=== PATIENT | female | born 1965 | race Caucasian/White ===

== ENCOUNTER 2016-07-23 22:29 | Emergency (ER) | payer OTHER ==
[~2016-07-23] VITALS: Ht 157.5 cm; Wt 69.2 kg
[~2016-07-23 22:29] MED LIST: DICL75 PO; ESTR1TAB PO; ESTR1TAB12 PO; FOLI1 PO; HYDR-3533 PO; LISI-586 PO; MULT1TAB46; PRED20 PO; ROBA750T3 PO; VITATAB25 PO
[2016-07-23 22:31] VITALS: BP 162/94; PULSE 83; RESP 18; TEMP 98.6; O2SAT 98
[2016-07-23] MEDS ORDERED: TRAM50TA PO (22:45)
[2016-07-23] MEDS ORDERED: ESTR1TAB PO (22:45)
[2016-07-23] MEDS ORDERED: LISI20TA PO (22:45)
[2016-07-23] MEDS ORDERED: LISI20TA3 PO (22:45)
--- NOTE | 2016-07-23 22:54 | PD ---
HPI Chief Complaint: Cold / Flu Symptoms Time Seen by Provider: 22:41 Travel History International Travel<30 days: No Contact w/Intl Traveler<30days: No Traveled to known affect area: No History of Present Illness HPI 50-year-old female complains of sore throat coughing congestion shortness of breath and wheezing and body ache. Patient states that the symptoms started 5 days ago. Patient states the cough is mildly productive. Patient denies any chest pain. Patient denies any fever. Patient states that she has hot and cold feelings. Patient denies any nausea vomiting diarrhea. Patient has history COPD. Patient states that she quit smoking in the past. Patient states that she used inhaler prior coming to the emergency room. 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) Blood Disorders: Yes (INTESTINAL ANEURSYMS) Cancer: Yes (VAGINAL) Cardiovascular Problems: No High Cholesterol: Yes Chemotherapy: No COPD: Yes Cerebrovascular Accident: No Diabetes: No Diminished Hearing: No Endocrine: No Gastrointestinal Disorders: Yes (AVM) GERD: Yes Glaucoma: No Genitourinary: No Hepatitis: No Hiatal Hernia: No Hypertension: Yes Immune Disorder: No Musculoskeletal: Yes (SCOLIOSIS) Neurologic: No Psychiatric: No Reproductive: No Respiratory: No Immunizations Current: Yes Pneumonia: Yes (09/07/09) Radiation Therapy: No Thyroid Disease: No Tetanus Vaccination: Unknown Influenza Vaccination: Yes ?: Not Menopausal: Yes : 3 Para: 1 Miscarriage: 2 Past Surgical History Abdominal Surgery: No AICD: No Appendectomy: Yes Arteriovenous Shunt: No Body Medical Devices: POLYPS ON COLON Cardiac Surgery: No Ear Surgery: No Endocrine Surgery: No Eye Surgery: No Genitourinary Surgery: No Gynecologic Surgery: Yes (BREAST REDUCTION) Hysterectomy: Yes Insulin Pump: No Joint Replacement: No Neurologic Surgery: No Oral Surgery: No Pacemaker: No Thoracic Surgery: No Tonsillectomy: Yes Other Surgery: Yes (BREAST REDUCTION) Social History Alcohol Use: No Tobacco Use: No Substance Use: No Allergies-Medications (Allergen,Severity, Reaction): Coded Allergies: No Known Allergies (Unverified , 07/23/16) Reported Meds & Prescriptions Reported Meds & Active Scripts Active Reported Lisinopril-Hctz 20-12.5 Mg Tab 1 Tab PO DAILY Tramadol (Tramadol HCl) 50 Mg Tab 50 Mg PO Q6H PRN Estradiol 1 Mg Tab 1 Mg PO DAILY Review of Systems General / Constitutional: No: Fever Eyes: No: Visual changes HENT: No: Headaches Cardiovascular: No: Chest Pain or Discomfort Respiratory: Positive: Cough, Shortness of Breath, Wheezing Gastrointestinal: No: Abdominal Pain Genitourinary: No: Dysuria Musculoskeletal: No: Pain Skin: No Rash Neurologic: No: Weakness Psychiatric: No: Depression Endocrine: No: Polydipsia Hematologic/Lymphatic: No: Easy Bruising Physical Exam Narrative GENERAL: Well-nourished, well-developed patient. SKIN: Warm and dry. HEAD: Normocephalic. EYES: No scleral icterus. No injection or drainage. NECK: Supple, trachea midline. No JVD or lymphadenopathy. CARDIOVASCULAR: Regular rate and rhythm without murmurs, gallops, or rubs. RESPIRATORY: Breath sounds equal bilaterally. No accessory muscle use. Patient has moderate expiratory wheezes bilaterally. Few rhonchi at the bases. GASTROINTESTINAL: Abdomen soft, non-tender, nondistended. MUSCULOSKELETAL: No cyanosis, or edema. BACK: Nontender without obvious deformity. No CVA tenderness. Data Data Last Documented VS Vital Signs Date Time Temp Pulse Resp B/P Pulse Ox O2 Delivery O2 Flow Rate FiO2 07/23/16 22:46 98 Room Air 07/23/16 22:31 98.6 83 18 162/94 Orders Chest, Single Ap (07/23/16 22:47) Albuterol-Ipratropium Neb (Duoneb Neb) (07/23/16 23:00) Dexamethasone Inj (Decadron Inj) (07/23/16 23:00) Azithromycin (Zithromax) (07/23/16 23:30) MDM Medical Decision Making Medical Screen Exam Complete: Yes Emergency Medical Condition: Yes Differential Diagnosis Differential diagnosis including acute exacerbation COPD, bronchitis, pneumonia , PE, pneumothorax. Narrative Course 50-year-old female with sore throat, body ache, coughing, wheezing, shortness of breath. Patient has history of COPD. Albuterol with Atrovent unit dose treatment 3. Decadron 8 mg IM. Patient was advised to be admitted for acute exacerbation COPD. Patient refuses admission. Patient states that she has animal at home that she has to be cared for. Albuterol with Atrovent unit dose treatment times one. Diagnosis Primary Impression: COPD with acute exacerbation Patient Instructions: General Instructions Med/Other Pt SpecificInfo: Prescription(s) given Scripts Budesonide-Formoterol Inh (Symbicort Inh)160-4.5 Mcg/Act Aero1 Puff INH Q12HR # 1 INHALER Ref 0 Prov:Geo Gates MD 07/23/16 Prednisone 20 Mg Tab20 Mg PO BID #14 TAB Prov:Geo Gates MD 07/23/16 Azithromycin (Zithromax Z-Micky)250 Mg [id number] Mg PO DIRECTED #1 DSPK 500 MG (2 tabs) day 1, then 1 tab days 2-5. Prov:Geo Gates MD 07/23/16 Disposition: 01 DISCHARGE HOME Condition: Fair Geo Gates MD Jul 23, 2016 22:54
[2016-07-23] MEDS: RESP: ALBUTEROL 2.5 MG/IPRATROPIUM 0.5 MG NEB (SCH) INH (22:55)
[2016-07-23] MEDS ORDERED: DEXAMETHASONE SOD PHOS 4 MG/ML VIAL IM ONE (23:00)
[2016-07-23] MEDS ORDERED: RESP: ALBUTEROL 2.5 MG/IPRATROPIUM 0.5 MG NEB (SCH) INH ONE (23:30)
[2016-07-23] MEDS ORDERED: AZITHROMYCIN 250 MG TAB PO ONE (23:30)
[2016-07-23] MEDS ORDERED: PRED20 PO (23:31)
[2016-07-23] MEDS ORDERED: ZITHTAB PO (23:31)
[2016-07-23] MEDS ORDERED: SYMB160A INH (23:31)
--- NOTE | 2016-07-23 23:32 | RADHPO ---
EXAM DATE/TIME: 07/23/2016 23:08 [facility] COMPARISON: CHEST SINGLE AP, February 19, 2015, 8:41. INDICATIONS : Cough and shortness of breath. MEDICAL HISTORY : Hypertension. Chronic obstructive pulmonary disease. Arthritis. Pneumonia SURGICAL HISTORY : Appendectomy. Hysterectomy. Breast reduction, right knee surgery ENCOUNTER: Initial ACUITY: 4 - 6 days PAIN SCORE: 0/10 LOCATION: Bilateral chest FINDINGS: A single view of the chest demonstrates the lungs to be symmetrically aerated without evidence of mas s, infiltrate or effusion. The cardiomediastinal contours are unremarkable. Osseous structures are intact. CONCLUSION: No acute disease. Ac Mckeon MD on July 23, 2016 at 23:30 Board Certified Radiologist. This report was verified electronically.
[2016-07-23 23:38] VITALS: BP 131/86; PULSE 89; RESP 18; O2SAT 98
== END 2016-07-24 00:20 | disposition home or self-care (01) ==
LOC: PHED 22:29
DX: J44.1 Chronic obstructive pulmonary disease with (acute) exacerbation (principal); I10 Essential (primary) hypertension; Z87.891 Personal history of nicotine dependence
CPT/HCPCS: 71010; 94640; 94664; 96372; 99284; J1100

== ENCOUNTER 2017-05-16 08:30 | Inpatient (IN) | payer OTHER ==
[~2017-05-16] VITALS: Ht 154.9 cm; Wt 78.9 kg
[~2017-05-16 08:30] MED LIST changes: +CYCL10TA PO; -DICL75 PO; -ESTR1TAB12 PO; -FOLI1 PO; -HYDR-3533 PO; +HYDR-3583 PO; -LISI-586 PO; +LISI20TA PO; -MULT1TAB46; -PRED20 PO; -ROBA750T3 PO; +TRAM50TA PO; -VITATAB25 PO
[2017-05-16] MEDS ORDERED: POVIDONE IODINE 5% (ANTISEPSIS KIT) 4 APPLICATIONS EACH NARE PRN (09:00)
[2017-05-16] MEDS ORDERED: LACTATED RINGER'S 1000 ML IV PRN (09:00)
[2017-05-16] MEDS ORDERED: LACTATED RINGER'S 1000 ML INJ 1,000 ML IV SCH (09:00)
[2017-05-16] MEDS ORDERED: METOPROLOL TARTRATE 25 MG TAB PO PRN (09:00)
[2017-05-16] MEDS ORDERED: CHLORHEXIDINE GLUCONATE 2 % 1 PACK (2 CLOTHS) TOPICAL PRN (09:00)
[2017-05-16] MEDS ORDERED: SODIUM CHLORID 0.9% 500 ML IV PRN (09:00)
[2017-05-16] MEDS ORDERED: LISI20TA PO (09:06)
[2017-05-16] MEDS ORDERED: PHENYLEPHRINE HCL 10 MG/ML VIAL IV ONE (12:00)
[2017-05-16] MEDS ORDERED: NEOSTIGMINE 3 MG/3 ML SYR IV ONE (12:00)
[2017-05-16] MEDS ORDERED: ONDANSETRON HCL 4 MG/2 ML VIAL IV PUSH ONE (12:00)
[2017-05-16] MEDS ORDERED: ePHEDrine/NS 25 MG/5 ML SYR IV ONE (12:00)
[2017-05-16] MEDS ORDERED: ceFAZolin INJ 1,000 MG VIAL IV ONE ×2 (12:00)
[2017-05-16] MEDS ORDERED: ROCURONIUM INJ 50 MG/5 ML SYRINGE IV PUSH ONE (12:00)
[2017-05-16] MEDS ORDERED: PROPOFOL 200 MG/20 ML AMP IV ONE (12:00)
[2017-05-16] MEDS ORDERED: LIDOCAINE HCL 1% PF 5 ML SYRINGE OTHER ONE (12:00)
[2017-05-16] MEDS ORDERED: DEXAMETHASONE SOD PHOS 4 MG/ML VIAL IV ONE (12:00)
[2017-05-16] MEDS ORDERED: PHENYLEPH/NS 1000 MCG/10 ML SYR IV ONE (12:00)
[2017-05-16] MEDS ORDERED: MIDAZOLAM HCL 2 MG/2 ML VIAL IV ONE (12:00)
[2017-05-16] MEDS ORDERED: THROMBIN (TOPICAL) 5,000 UNIT VIAL ONE (12:15)
[2017-05-16] MEDS ORDERED: GELFOAM SIZE 100 ONE (12:15)
[2017-05-16] MEDS ORDERED: GENTAMICIN SULFATE 80 MG/2 ML VIAL ONE (12:16)
[2017-05-16] MEDS: ceFAZolin 1,000 MG/NS 100 ML IV SCH ×6 (13:33→17:30)
[2017-05-16] MEDS: LIDOCAINE 1%/EPINEPHrine 1:100,000 SOLN 50 ML VIAL ONE ×2 (14:04→14:08)
[2017-05-16 16:39] LABS: BLOOD GAS BASE EXCESS 0.2 mmol/L (-2-2); BLOOD GAS CARBOXYHEMOGLOBIN 0.9 % (0-4); BLOOD GAS HCO3 24 mmol/L (22-26); BLOOD GAS METHEMOGLOBIN 1.5 % (0-2); BLOOD GAS O2 HGB SATURATION 97 % (90-100); BLOOD GAS OXYGEN CONTENT 19.4 Vol % (12.0-20.0); BLOOD GAS PCO2 36 mmHg (38-42); BLOOD GAS PO2 273 mmHg (61-120); BLOOD GAS TOTAL HGB 13.8 G/DL (12.0-16.0); TEMP CORR TO 98.6
[2017-05-16 16:41] LABS: CRITICAL VALUE NO; DRAW SITE ART LINE; OXYGEN DEVICE VENTILATOR; STAT YES
[2017-05-16] MEDS ORDERED: BUPIVACAINE LIPOSOME PF 1.3% 20 ML VIAL ONE (17:19)
[2017-05-16] MEDS ORDERED: BUPIVACAINE LIPOSOME PF 1.3% 20 ML VIAL INFIL ONE (17:26)
[2017-05-16] MEDS ORDERED: SODIUM CHLORIDE 0.9% FLUSH 5 ML FLUSH IVF PRN (18:15)
[2017-05-16] MEDS ORDERED: ONDANSETRON HCL 4 MG/2 ML VIAL IV PUSH PRN (18:15)
[2017-05-16] MEDS ORDERED: ACETAMINOPHEN/HYDROcodone 325 MG/5 MG TAB PO PRN (18:15)
[2017-05-16] MEDS ORDERED: NALOXONE HCL 0.4 MG/ML AMP IV PUSH PRN (18:15)
[2017-05-16] MEDS ORDERED: *morphine SULFATE 8 MG/ML PERIprocedure ONLY ONE ×3 (18:35→19:17)
[2017-05-16] MEDS ORDERED: DO NOT ADM ANY ANTICOAGULANT DRUGS PRN (18:45)
[2017-05-16] MEDS ORDERED: HYDROmorphone HCL PF 0.5 MG/0.5 ML SYRINGE IV PRN (18:45)
--- NOTE | 2017-05-16 18:47 | PD.OP ---
Operative Report Date of Surgery: May 16, 2017 Preoperative Diagnosis: (1) Spondylolisthesis of lumbar region (2) Lumbar radiculopathy 1. Grade 1 L5-S1 spondylolisthesis 2. Left L5-S1 foraminal stenosis 3. Left L5-S1-S1 radiculopathy Postoperative Diagnosis: (1) Spondylolisthesis of lumbar region (2) Lumbar radiculopathy 1. Grade 1 L5-S1 spondylolisthesis 2. Left L5-S1 foraminal stenosis 3. Left L5-S1-S1 radiculopathy Procedure: 1. Left L5-S1 decompressive semi-laminectomy, facetectomy, foraminotomy- microtechnique 2. Left L5-S1 discectomy, interbody fusion,PEEK cage, local autograft bone, allograft bone-microtechnique 3. Bilateral L5-S1 posterior pedicle screw fixation 4. Intraoperative reduction grade 1 L5-S1 spondylolisthesis Anesthesia: General Surgeon: Shalom North Silo Painter(s): Sofiya Frye Operation and Findings: Findings: Severe left L5-S1 foraminal stenosis secondary to spondylolisthesis and disc displacement. Prominent L5-S1 posterior osteophytic disc complexes with significant canal and lateral recess stenosis. Procedure in detail The patient was brought to the operating room and general endotracheal anesthesia induced without difficulty Lines were established per Anesthesia Sequential compression devices were in place The patient was positioned prone on the concentric Emile table with the side bolsters and all extremities appropriately padded Leads for intraoperative neuro monitoring were placed prior to positioning and a baseline study obtained Appropriate timeout procedure was performed with all personnel present and in agreement The lumbar region was shaved with clippers and sterilely prepped and draped 1% Xylocaine with epinephrine was used for local infiltration over the incision site which was made approximately 5 cm lateral to the midline at the bilateral L5-S1 level and carried sharply down to the fascia. The fascia was sharply incised and finger dissection was used to separate the normal intermuscular plane at the L5-S1 level, allowing direct palpation of the junction of the and pedicle and transverse process on each side. The entry point for the pedicle screws were determined by anatomic and radiographic landmarks. Using AP and lateral C-arm imaging, the Jamshidi needle was guided through the bilateral L5 and S1 pedicle. The intraoperative C-arm imaging was used to verify appropriate Jamshidi needle placement. The wires were then placed through the Jamshidi needle cannulas, and the cannula was withdrawn. The wires were temporarily clipped away from the operative field. On the left side Claros elevator was used for subperiosteal elevation of paraspinous musculature and fascia away from the lamina and spinous processes of L5 and S1. The deep self-retaining retractor was placed The appropriate levels were verified with intraoperative C-arm The microscope was moved into place and used for the remainder of the procedure including the closure The TPS drill with a 5 mm bone bur followed by the Kerrison rongeur was used to remove the inferior two thirds of the lamina at the left L5 level as well as the entire left L5-S1 facet Hypertrophied ligamentum flavum was elevated away from the thecal sac and exiting nerve roots with the thin ligament dissector and resected with a 15 blade knife and Kerrison rongeur. The thecal sac and exiting nerve root were freed up from surrounding adhesions with the microdissectors and gently retracted medially revealing the underlying disc and annulus. There was moderate chronic-appearing posterior osteophytic disc complex which was causing significant compression on the overlying L5 and S1 nerve roots. The osteophyte was removed with the reverse curette and the annulus was incised with the 11 blade knife and discectomy performed with pituitary biopsy forceps and straight and angled curettes The endplate scrapers were used to decorticate the endplates and any remaining debris was removed with the antibiotic irrigation and suction and pituitary biopsy forceps A mixture of retained lamina cancellus autograft and demineralized bone matrix was placed into the anterior L5-S1 interspace using the bone funnel. This was packed firmly into place. The appropriate size PEEK cage was packed with retained lamina cancellus autograft and a small amount of demineralized bone matrix The cage was placed at the L5-S1 level with a good fit of the cage. The placement was checked under the microscope and with intraoperative C-arm and felt to be satisfactory. The thecal sac and nerve roots were probed with the long blunt nerve hook and felt to be well decompressed The cannulated 5.5 mm tap was then used to prepare the pedicle screw sites on each side, with the dilators used to protect the surrounding tissue. The appropriate length Spine Wave Sniper percutaneous cannulated pedicle screw attached to the MIS extenders were placed into the bilateral L5 and S1 pedicle using the existing guidewires which were then removed. The 6.5 x 40 mm screws were used at L5 and the 6.5 x 35 mm screws at S1. Pedicle screw placement was checked with intraoperative C-arm imaging and felt to be satisfactory. The percutaneous rods were placed across the pedicle screws on each side. The locking caps were secured with the torque wrench and anti-torque device Compression and alignment were achieved as necessary with the rods and reducers. The S1 screws were locked in place first and the MIS reducers were used to reduce the spondylolisthesis prior to final tightening of the L5 and S1 screws on each side. The entire construct was checked with intraoperative C-arm and felt to be satisfactory The region was well irrigated with antibiotic irrigation The 10 Beninese fluted drain was left in place at the left operative side and brought out through an incision at the upper lumbar region and secured to the skin with nylon suture and attached to sterile suction. Bleeding was carefully controlled with the bipolar forceps The closure was performed with 0 Vicryl interrupted for the deep and superficial fascia, with 3-0 Vicryl for the subcutaneous closure and 4-0 Vicryl running subcuticular closure. Dressings sterile Mastisol, Steri-Strips and Primapore was placed The patient was turned into supine position and taken to recovery room in stable condition All counts were correct at the end of the case Estimated blood loss was 150 cc No specimen was sent to pathology Neuro monitoring was stable during the procedure Shalom North MD May 16, 2017 18:47
[2017-05-16] MEDS: D5-1/2 NS + KCL 20 MEQ INJ 1,000 ML IV SCH (19:15)
[2017-05-16 20:00] VITALS: BP 139/79; PULSE 103; RESP 17; TEMP 98.9; O2SAT 100
[2017-05-16] MEDS: DOCUSATE SODIUM 100 MG CAP PO SCH (20:15)
[2017-05-16] MEDS: ACETAMINOPHEN/HYDROcodone 325 MG/10 MG TAB PO PRN (20:15)
[2017-05-16] MEDS: METHOCARBAMOL 500 MG TAB PO PRN (20:16)
[2017-05-16] MEDS: SODIUM CHLORIDE 0.9% FLUSH 5 ML FLUSH IVF SCH (20:17)
--- NOTE | 2017-05-16 20:26 | RADRPT ---
EXAM DATE/TIME: 05/16/2017 13:21 [facility] COMPARISON: No previous studies available for comparison. INDICATIONS : Lumbar spine L5-S1 laminectom, facetectomy, and fusion with screws, rods, and cage. OR. MEDICAL HISTORY : Hypertension. Chronic obstructive pulmonary disease. Arthritis. SURGICAL HISTORY : Appendectomy. Hysterectomy. Breast reduction. Right knee surgery. ENCOUNTER: Initial ACUITY: 1 day PAIN SCORE: Non-responsive. LOCATION: Lumbar L5-S1 FINDINGS: 2 images of the lower lumbar region are recorded digitally in the operating room using C-arm after pl acement of transpedicular screws and interspace device. CONCLUSION: Intraoperative images. Torey Santiago MD on May 16, 2017 at 20:24 Board Certified Radiologist. This report was verified electronically.
[2017-05-16] MEDS: MORPHINE SULFATE 4 MG/ML INJ IV PUSH PRN (21:57)
[2017-05-16] MEDS: KETOROLAC TROMETHAMINE 30 MG/ML (IVP) VIAL IV PUSH SCH (22:29)
[2017-05-17] VITALS: BP 130/76; PULSE 100; RESP 17; TEMP 100; O2SAT 100
[2017-05-17] MEDS: ACETAMINOPHEN/HYDROcodone 325 MG/10 MG TAB PO PRN ×2 (00:44→17:07)
[2017-05-17] MEDS: MORPHINE SULFATE 4 MG/ML INJ IV PUSH PRN (01:28)
[2017-05-17] MEDS: D5-1/2 NS + KCL 20 MEQ INJ 1,000 ML IV SCH ×2 (03:31→13:55)
[2017-05-17] MEDS: METHOCARBAMOL 500 MG TAB PO PRN ×2 (03:51→17:08)
[2017-05-17 04:00] VITALS: BP 128/73; PULSE 99; RESP 16; TEMP 99.7; O2SAT 99
[2017-05-17] MEDS: KETOROLAC TROMETHAMINE 30 MG/ML (IVP) VIAL IV PUSH SCH ×3 (05:45→21:05)
[2017-05-17] MEDS ORDERED: NALOXONE HCL 0.4 MG/ML AMP IV PUSH PRN (05:45)
[2017-05-17] MEDS ORDERED: ALPRAZolam 0.25 MG TAB PO PRN (05:45)
[2017-05-17] MEDS ORDERED: HYDROmorphone HCL PCA 6 MG/30 ML IV SCH (05:45)
[2017-05-17 05:50] LABS: AUTOMATED NEUTROPHIL # 13.2 TH/MM3 (1.8-7.7); BASOPHIL # 0.1 TH/MM3 (0-0.2); BASOPHIL % 0.5 % (0.0-2.0); EOSINOPHIL % 0.1 % (0.0-4.0); HEMATOCRIT 38.4 % (35.0-46.0); HEMO FLAGS DIFF FINAL; LYMPH % 23.3 % (9.0-44.0); LYMPHOCYTE # 4.7 TH/MM3 (1.0-4.8); MEAN CELL VOLUME 90.8 FL (80.0-100.0); MEAN CORPUSCULAR HEMOGLOBIN 30.2 PG (27.0-34.0); MEAN CORPUSCULAR HGB CONC 33.3 % (32.0-36.0); MONO % 10.1 % (0.0-8.0); PLATELET COUNT 204 TH/MM3 (150-450); RED BLOOD COUNT 4.23 MIL/MM3 (4.00-5.30); RED CELL DISTRIBUTION WIDTH 14.3 % (11.6-17.2); WHITE BLOOD COUNT 19.9 TH/MM3 (4.0-11.0)
[2017-05-17] MEDS: PCA - TOTAL MG DILAUDID DELIVERED PER SHIFT SCH ×3 (06:00→21:05)
[2017-05-17 06:11] LABS: POTASSIUM 4.1 MEQ/L (3.5-5.1)
[2017-05-17 08:00] VITALS: BP 141/80; PULSE 86; RESP 18; TEMP 98.4; O2SAT 97
[2017-05-17] MEDS: SODIUM CHLORIDE 0.9% FLUSH 5 ML FLUSH IVF SCH ×2 (09:00→21:00)
--- NOTE | 2017-05-17 09:32 | RADRPT ---
EXAM DATE/TIME: 05/17/2017 08:51 [facility] COMPARISON: No previous studies available for comparison. INDICATIONS : Pain around surgical site from yesterday's surgery. MEDICAL HISTORY : Hypertension. vaginal cancer SURGICAL HISTORY : Tonsillectomy. Fusion, lumbar. vaginal surgery, rt knee surgery ENCOUNTER: Subsequent ACUITY: 1 day PAIN SCORE: 3/10 LOCATION: lower back TECHNIQUE: Multiplanar multisequence MRI of the lumbar spine was performed without contrast. FINDINGS: The most caudal appearing lumbar vertebra is numbered as L5. Posterior to the L3-4 level is a abnorma l area of soft tissue which appears to anteriorly displace the thecal sac. The area extends for 1.7 cm in height. It mirrors fat on all the imaging sequences could be epidural lipoma. VERTEBRAE: There is extensive soft tissue edema posteriorly within the subcutaneous fat probably related to rece nt L5-S1 fusion. There is increased disc desiccation and at the L4-5 and L5-S1 level. There is marked narrowing at the L2-3 level. Normal alignment. CONUS: Normal level and configuration. T12-L1: The thecal sac has a normal diameter. No evidence of disc bulge or protrusion. The neural foramina are patent bilaterally. L1-L2: The thecal sac has a normal diameter. No evidence of disc bulge or protrusion. The neural foramina are patent bilaterally. L2-L3: The thecal sac is flattened secondary to a diffuse annular bulge right greater than left. The disc bu lge abuts the exiting right L2 nerve root. L3-L4: The thecal sac has a normal diameter. No evidence of disc bulge or protrusion. The neural foramina are patent bilaterally. L4-L5: The thecal sac is flattened from a posterior left-sided approach. There is a mild diffuse annular bul ge which does not affect the thecal sac. The mass displaces the thecal sac anteriorly it is iso-inten se to fat on all imaging sequences could be a lipoma No evidence of disc protrusion. The neural fora lynn are patent bilaterally. L5-S1: The thecal sac has a normal diameter. No evidence of disc bulge or protrusion. The neural foramina are patent bilaterally. CONCLUSION: Patient had a recent fusion at L5-S1 with excellent alignment and no obvious complication. There is s ome prominence of the epidural soft tissues posterior to the thecal sac at the L3-4 level I suspect i s a epidural lipoma. Chronic degenerative disease at the L2-3 level with diffuse annular bulge abutti ng the right L2 nerve root while the neural foramen. Vitaliy Crowder MD on May 17, 2017 at 9:24 Board Certified Radiologist. This report was verified electronically.
[2017-05-17] MEDS: HYDROCHLOROTHIAZIDE 25 MG TAB PO SCH (09:42)
[2017-05-17] MEDS: ESTRADIOL 1 MG TAB PO SCH (09:42)
[2017-05-17] MEDS: LISINOPRIL 20 MG TAB PO SCH (09:42)
[2017-05-17] MEDS: PANTOPRAZOLE SOD 40 MG DELAYED RELEASE TAB PO SCH (09:42)
[2017-05-17] MEDS: DOCUSATE SODIUM 100 MG CAP PO SCH ×2 (09:43→21:04)
[2017-05-17 09:48] VITALS: O2SAT 99
--- NOTE | 2017-05-17 10:28 | HHI.NSPN ---
(Valentin Ng) History Chief Complaint: Pain to back much better today. (Valentin Ng) Interval History 05/16: The patient presented to [facility] to have a left decompressive laminectomy and discetomy with PEEK cage placement and bilateral posterior screw fixation. Post-operatively she was admitted to a regular med/surg floor for further care and monitoring due to agitation. 05/17: This morning the patient is doing well.She states that the pain she had during the night is much better and basically resolved. She is using a DENTISTRY PROFESSOR pump for pain control. Prior to being evaluated the patient was seen up and ambulating the hallway with standby assist from Physical Therapy. She did go to have an MRI lumbar spine this morning due to the pain during the night. (Valentin Ng) System Review Comments MUSCULOSKELETAL: Some back pain that is better than yesterday. NEUROLOGICAL: Left foot feels different but doesn't think it is numbness. (Valentin Ng) Exam Results 05/15/17 05/15/17 05/16/17 05/16/17 05/17/17 05/17/17 06:00 18:00 06:00 18:00 06:00 18:00 Intake Total 2700 ml 1250 ml 450 ml Output Total 850 ml 2280 ml 1200 ml Balance 1850 ml -1030 ml -750 ml Intake Oral 750 ml 450 ml IV Total 500 ml Other 2700 ml Output Urine Total 700 ml 2250 ml 1200 ml Drainage Total 30 ml Estimated Blood Loss 150 ml Vital Signs Date Time Temp Pulse Resp B/P (MAP) Pulse Ox O2 Delivery O2 Flow Rate FiO2 05/17/17 09:56 Room Air 05/17/17 09:48 99 21 05/17/17 08:00 98.4 86 18 141/80 (100) 97 05/17/17 06:58 18 05/17/17 06:29 18 05/17/17 06:00 18 05/17/17 04:19 19 05/17/17 04:00 99.7 99 16 128/73 (91) 99 11/21/17 01:33 18 05/17/17 01:33 18 05/17/17 00:00 100.0 100 17 130/76 (94) 100 05/16/17 23:51 Nasal Cannula 2.00 05/16/17 20:02 18 05/16/17 20:01 17 05/16/17 20:01 18 05/16/17 20:00 98.9 103 17 139/79 (99) 100 05/16/17 19:15 98.6 90 16 116/62 (80) 97 Nasal Cannula 2 05/16/17 19:00 87 16 112/57 (75) 100 Nasal Cannula 2 05/16/17 18:45 84 14 108/52 (70) 100 Nasal Cannula 2 05/16/17 18:30 79 15 92/46 (61) 100 Nasal Cannula 2 05/16/17 18:15 78 16 98/56 (70) 99 Nasal Cannula 3 05/16/17 18:10 99.1 82 22 115/55 (75) 99 Nasal Cannula 3 05/16/17 09:09 97.1 78 20 129/84 (99) (Valentin Ng) Physical Examination GENERAL: The patient is awake & alert when seen laying in bed. Her affect is normal and she is not in any distress. SKIN: There are dry & intact dressings to the right & left lateral lumbar surgical incisions and a dry & intact dressing to the left lateral RENAN drain insertion site, all w/o any evident drainage, erythema or streaking. MUSCULOSKELETAL: RODRIGUEZ w/o difficulty, no evident deformity or clubbing. BLE NTTP. The lumbar spine is moderately TTP which decreases laterally on both sides , the left lateral RENAN drain is to bulb suction w/serosanguinous drainage. NEUROLOGICAL: AAOx3. Speech clear & appropriate. Follows simple commands w/o difficulty. Sensation intact to light touch to all extremities. Motor strength is 5/5 to all major flexion & extension muscle groups to the BLE. (Valentin Ng) Lab, Micro, Other Results Recent Impressions Lumbar Spine MRI 05/17/17 0000 Signed Impressions: Service Date/Time: Wednesday, May 17, 2017 08:51 - CONCLUSION: Patient had a recent fusion at L5-S1 with excellent alignment and no obvious complication. There is some prominence of the epidural soft tissues posterior to the thecal sac at the L3-4 level I suspect is a epidural lipoma. Chronic degenerative disease at the L2-3 level with diffuse annular bulge abutting the right L2 nerve root while the neural foramen. Vitaliy Crowder MD Lumbar Spine X-Ray 05/16/17 0000 Signed Impressions: Service Date/Time: Tuesday, May 16, 2017 13:21 - CONCLUSION: Intraoperative images. Torey Santiago MD Laboratory Tests Test 05/16/17 16:30 05/17/17 05:29 Blood Gas Puncture Site ART LINE Blood Gas Patient Temperature 98.6 Blood Gas HCO3 24 mmol/L Blood Gas Base Excess 0.2 mmol/L Blood Gas Oxygen Saturation 97 % Arterial Blood pH 7.44 Arterial Blood Partial Pressure CO2 36 mmHg Arterial Blood Partial Pressure O2 273 mmHg Arterial Blood Oxygen Content 19.4 Vol % Arterial Blood Carboxyhemoglobin 0.9 % Arterial Blood Methemoglobin 1.5 % Blood Gas Hemoglobin 13.8 G/DL Oxygen Delivery Device VENTILATOR White Blood Count 19.9 TH/MM3 Red Blood Count 4.23 MIL/MM3 Hemoglobin 12.8 GM/DL Hematocrit 38.4 % Mean Corpuscular Volume 90.8 FL Mean Corpuscular Hemoglobin 30.2 PG Mean Corpuscular Hemoglobin Concent 33.3 % Red Cell Distribution Width 14.3 % Platelet Count 204 TH/MM3 Mean Platelet Volume 9.5 FL Neutrophils (%) (Auto) 66.0 % Lymphocytes (%) (Auto) 23.3 % Monocytes (%) (Auto) 10.1 % Eosinophils (%) (Auto) 0.1 % Basophils (%) (Auto) 0.5 % Neutrophils # (Auto) 13.2 TH/MM3 Lymphocytes # (Auto) 4.7 TH/MM3 Monocytes # (Auto) 2.0 TH/MM3 Eosinophils # (Auto) 0.0 TH/MM3 Basophils # (Auto) 0.1 TH/MM3 CBC Comment DIFF FINAL Differential Comment Blood Urea Nitrogen 8 MG/DL Creatinine 0.65 MG/DL Random Glucose 110 MG/DL Calcium Level 8.5 MG/DL Sodium Level 142 MEQ/L Potassium Level 4.1 MEQ/L Chloride Level 106 MEQ/L Carbon Dioxide Level 27.0 MEQ/L Anion Gap 9 MEQ/L Estimat Glomerular Filtration Rate 95 ML/MIN (Valentin Ng) Medical Decision Making Impression and Plan Impression: Postoperative Diagnosis: (1) Spondylolisthesis of lumbar region (2) Lumbar radiculopathy 1. Grade 1 L5-S1 spondylolisthesis 2. Left L5-S1 foraminal stenosis 3. Left L5-S1-S1 radiculopathy Patient is doing well post-operatively with improved pain control, neurologically intact to BLE. Reviewed labs & imaging for today. Leukocytosis which may be secondary to surgery. MRI lumbar spine demonstrates post-operative changes secondary to the L5-S1 fusion. There is epidural soft tissue prominence posteriorly at the L3-4 level which is suspected to be an epidural lipoma. Also noted is chronic degenerative disease at the L2-3 level with abutment of an annular bulge to the right L2 nerve root. RENAN drain w/30 mL out this morning since surgery. POD #1 () s/p: 1. Left L5-S1 decompressive semi-laminectomy, facetectomy, foraminotomy- microtechnique 2. Left L5-S1 discectomy, interbody fusion,PEEK cage, local autograft bone, allograft bone-microtechnique 3. Bilateral L5-S1 posterior pedicle screw fixation 4. Intraoperative reduction grade 1 L5-S1 spondylolisthesis Plan: Neuro checks q4h. Mobilise patient w/assistance as needed. LSO on when OOB. PT eval & tx. Will obtain UA & CXR due to leukocytosis. (Valentin Ng) Attending Statement The exam, history, and the medical decision-making described in the above note were completed with the assistance of the mid-level provider. I reviewed and agree with the findings presented. I attest that I had a [id number] encounter with the patient on the same day, and personally performed and documented my assessment and findings in the medical record. Ms. Joy is much more comfortable today. She became extremely painful, somewhat agitated and nearly delirious last evening. Responded to Xanax and DENTISTRY PROFESSOR pump. She has not used a DENTISTRY PROFESSOR pump this evening. She walked over 400 feet today. Continuing to wean off of IV medications to oral medication. Her neurologic exam is stable postoperatively. A postoperative MRI was performed to assess for possible epidural hematoma contributed to the pain, and this appears satisfactory. 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 Anticipate discharge home 2016 it continues to improve. (Shalom North MD) Valentin Ng May 17, 2017 10:28 Shalom North MD May 17, 2017 22:46
[2017-05-17 12:00] VITALS: BP 119/65; PULSE 88; RESP 18; TEMP 97.9; O2SAT 98
[2017-05-17 13:38] LABS: BLOOD, URINE NEG (NEG); GLUCOSE,URINE NEG (NEG); KETONE, URINE NEG (NEG); MUCUS URINE FEW /lpf (OCC); NITRITE,URINE NEG (NEG); PH, URINE 8.5 (5.0-8.5); SQUAMOUS EPITHELIAL CELL URINE 2 /hpf (0-5); URINE COLOR LIGHT-YELLOW (YELLW/STRAW)
[2017-05-17 13:40] LABS: COMMENT (UR) CULT NOT INDICATED; CULTURE IF INDICATED CULT NOT INDICATED
--- NOTE | 2017-05-17 15:36 | RADRPT ---
EXAM DATE/TIME: 05/17/2017 15:17 [place] COMPARISON: No previous studies available for comparison. INDICATIONS : Cough, shortness of breath. MEDICAL HISTORY : Hypertension. Chronic obstructive pulmonary disease. Arthritis. Pneumonia SURGICAL HISTORY : Appendectomy. Hysterectomy. Breast reduction, right knee surgery ENCOUNTER: Subsequent ACUITY: 2 days PAIN SCORE: 0/10 LOCATION: Bilateral chest FINDINGS: PA and lateral views of the chest demonstrate the lungs to be symmetrically aerated without evidence of mass, infiltrate or effusion. The cardiomediastinal contours are unremarkable. Osseous structure s are intact. CONCLUSION: 1. No acute cardiopulmonary disease. Bridger Howard MD on May 17, 2017 at 15:34 Board Certified Radiologist. This report was verified electronically.
[2017-05-17 20:14] VITALS: BP 111/76; PULSE 79; RESP 16; TEMP 100.2; O2SAT 100
[2017-05-17] MEDS ORDERED: CYCLOBENZAPRINE HCL 10 MG TAB PO SCH (21:00)
[2017-05-18 00:19] VITALS: BP 136/85; PULSE 87; RESP 16; TEMP 98.6; O2SAT 100
[2017-05-18] MEDS: ACETAMINOPHEN/HYDROcodone 325 MG/10 MG TAB PO PRN ×4 (01:48→13:37)
[2017-05-18] MEDS: KETOROLAC TROMETHAMINE 30 MG/ML (IVP) VIAL IV PUSH SCH ×2 (05:37→13:37)
[2017-05-18 07:59] VITALS: BP 114/78; PULSE 81; RESP 17; TEMP 98; O2SAT 98
[2017-05-18] MEDS: SODIUM CHLORIDE 0.9% FLUSH 5 ML FLUSH IVF SCH (09:00)
[2017-05-18] MEDS: PANTOPRAZOLE SOD 40 MG DELAYED RELEASE TAB PO SCH (09:06)
[2017-05-18] MEDS: DOCUSATE SODIUM 100 MG CAP PO SCH (09:06)
[2017-05-18] MEDS: LISINOPRIL 20 MG TAB PO SCH (09:06)
[2017-05-18] MEDS: ESTRADIOL 1 MG TAB PO SCH (09:06)
[2017-05-18] MEDS: HYDROCHLOROTHIAZIDE 25 MG TAB PO SCH (09:06)
--- NOTE | 2017-05-18 11:06 | HHI.NSPN ---
History Chief Complaint: Pain continues to improve to the back. Interval History 05/16: The patient presented to [facility] to have a left decompressive laminectomy and discetomy with PEEK cage placement and bilateral posterior screw fixation. Post-operatively she was admitted to a regular med/surg floor for further care and monitoring due to agitation. 05/17: This morning the patient is doing well.She states that the pain she had during the night is much better and basically resolved. She is using a TAPE RECORDER REPAIRER pump for pain control. Prior to being evaluated the patient was seen up and ambulating the hallway with standby assist from Physical Therapy. She did go to have an MRI lumbar spine this morning due to the pain during the night. 05/18: When seen this morning the patient is awake and alert. She is laying in bed dressed with her LSO brace in place. She says the pain to her back continues to improve and is controlled with oral medication. She has been off IV pain medication since yesterday evening. System Review Comments MUSCULOSKELETAL: Slight pain to the back that is better than yesterday. Exam Results 05/16/17 05/16/17 05/17/17 05/17/17 05/18/17 05/18/17 06:00 18:00 06:00 18:00 06:00 18:00 Intake Total 2700 ml 1250 ml 930 ml 480 ml 360 ml Output Total 850 ml 2280 ml 1210 ml 0 ml 5 ml Balance 1850 ml -1030 ml -280 ml 480 ml 355 ml Intake Oral 750 ml 930 ml 480 ml 360 ml IV Total 500 ml Other 2700 ml Output Urine Total 700 ml 2250 ml 1200 ml Drainage Total 30 ml 10 ml 0 ml 5 ml Estimated Blood Loss 150 ml # Voids 3 3 4 # Bowel Movements 0 0 0 Vital Signs Date Time Temp Pulse Resp B/P (MAP) Pulse Ox O2 Delivery O2 Flow Rate FiO2 05/18/17 08:00 98 Room Air 05/18/17 07:59 98.0 81 17 114/78 (90) 98 05/18/17 00:19 98.6 87 16 136/85 (102) 100 05/17/17 20:14 100.2 79 16 111/76 (88) 100 05/17/17 14:00 16 05/17/17 12:00 97.9 88 18 119/65 (83) 98 05/17/17 09:56 Room Air 05/17/17 09:48 99 21 05/17/17 08:00 98.4 86 18 141/80 (100) 97 05/17/17 06:58 18 05/17/17 06:29 18 05/17/17 06:00 18 05/17/17 04:19 19 05/17/17 04:00 99.7 99 16 128/73 (91) 99 05/17/17 01:33 18 05/17/17 01:33 18 05/17/17 00:00 100.0 100 17 130/76 (94) 100 05/16/17 23:51 Nasal Cannula 2.00 05/16/17 20:02 18 05/16/17 20:01 17 05/16/17 20:01 18 05/16/17 20:00 98.9 103 17 139/79 (99) 100 05/16/17 19:15 98.6 90 16 116/62 (80) 97 Nasal Cannula 2 05/16/17 19:00 87 16 112/57 (75) 100 Nasal Cannula 2 05/16/17 18:45 84 14 108/52 (70) 100 Nasal Cannula 2 05/16/17 18:30 79 15 92/46 (61) 100 Nasal Cannula 2 05/16/17 18:15 78 16 98/56 (70) 99 Nasal Cannula 3 05/16/17 18:10 99.1 82 22 115/55 (75) 99 Nasal Cannula 3 05/16/17 09:09 97.1 78 20 129/84 (99) Physical Examination GENERAL: The patient is awake & alert laying in bed. Her affect is normal and she is not in any distress. SKIN: There are dry & intact dressings to the right & left lateral lumbar surgical incisions and a dry & intact dressing to the left lateral RENAN drain insertion site, all w/o any erythema, streaking or active drainage. MUSCULOSKELETAL: RODRIGUEZ w/o difficulty, no evident deformity or clubbing. BLE NTTP. The lumbar spine & lateral surgical incisions are mildly TTP w/the right lateral being slight more so, the left lateral RENAN drain is to bulb suction w/ scant serosanguinous drainage. NEUROLOGICAL: AAOx3. Speech clear & appropriate. Follows simple commands w/o difficulty. Sensation intact to light touch to all extremities. Motor strength is 5/5 to all major flexion & extension muscle groups to the BLE. Lab, Micro, Other Results Recent Impressions Lumbar Spine MRI 05/17/17 0000 Signed Impressions: Service Date/Time: Wednesday, May 17, 2017 08:51 - CONCLUSION: Patient had a recent fusion at L5-S1 with excellent alignment and no obvious complication. There is some prominence of the epidural soft tissues posterior to the thecal sac at the L3-4 level I suspect is a epidural lipoma. Chronic degenerative disease at the L2-3 level with diffuse annular bulge abutting the right L2 nerve root while the neural foramen. Vitaliy Crowder MD Chest X-Ray 05/17/17 0000 Signed Impressions: Service Date/Time: Wednesday, May 17, 2017 15:17 - CONCLUSION: 1. No acute cardiopulmonary disease. Bridger Howard MD Lumbar Spine X-Ray 05/16/17 0000 Signed Impressions: Service Date/Time: Tuesday, May 16, 2017 13:21 - CONCLUSION: Intraoperative images. Torey Santiago MD Laboratory Tests Test 05/16/17 16:30 05/17/17 05:29 05/17/17 12:30 Blood Gas Puncture Site ART LINE Blood Gas Patient Temperature 98.6 Blood Gas HCO3 24 mmol/L Blood Gas Base Excess 0.2 mmol/L Blood Gas Oxygen Saturation 97 % Arterial Blood pH 7.44 Arterial Blood Partial Pressure CO2 36 mmHg Arterial Blood Partial Pressure O2 273 mmHg Arterial Blood Oxygen Content 19.4 Vol % Arterial Blood Carboxyhemoglobin 0.9 % Arterial Blood Methemoglobin 1.5 % Blood Gas Hemoglobin 13.8 G/DL Oxygen Delivery Device VENTILATOR White Blood Count 19.9 TH/MM3 Red Blood Count 4.23 MIL/MM3 Hemoglobin 12.8 GM/DL Hematocrit 38.4 % Mean Corpuscular Volume 90.8 FL Mean Corpuscular Hemoglobin 30.2 PG Mean Corpuscular Hemoglobin Concent 33.3 % Red Cell Distribution Width 14.3 % Platelet Count 204 TH/MM3 Mean Platelet Volume 9.5 FL Neutrophils (%) (Auto) 66.0 % Lymphocytes (%) (Auto) 23.3 % Monocytes (%) (Auto) 10.1 % Eosinophils (%) (Auto) 0.1 % Basophils (%) (Auto) 0.5 % Neutrophils # (Auto) 13.2 TH/MM3 Lymphocytes # (Auto) 4.7 TH/MM3 Monocytes # (Auto) 2.0 TH/MM3 Eosinophils # (Auto) 0.0 TH/MM3 Basophils # (Auto) 0.1 TH/MM3 CBC Comment DIFF FINAL Differential Comment Blood Urea Nitrogen 8 MG/DL Creatinine 0.65 MG/DL Random Glucose 110 MG/DL Calcium Level 8.5 MG/DL Sodium Level 142 MEQ/L Potassium Level 4.1 MEQ/L Chloride Level 106 MEQ/L Carbon Dioxide Level 27.0 MEQ/L Anion Gap 9 MEQ/L Estimat Glomerular Filtration Rate 95 ML/MIN Urine Color LIGHT-YELLOW Urine Turbidity CLEAR Urine pH 8.5 Urine Specific [place] 1.015 Urine Protein NEG mg/dL Urine Glucose (UA) NEG mg/dL Urine Ketones NEG mg/dL Urine Occult Blood NEG Urine Nitrite NEG Urine Bilirubin NEG Urine Urobilinogen LESS THAN 2.0 MG/DL Urine Leukocyte Esterase NEG Urine RBC 4 /hpf Urine WBC 1 /hpf Urine Squamous Epithelial Cells 2 /hpf Urine Mucus FEW /lpf Microscopic Urinalysis Comment CULT NOT INDICATED Medical Decision Making Impression and Plan Impression: Postoperative Diagnosis: (1) Spondylolisthesis of lumbar region (2) Lumbar radiculopathy 1. Grade 1 L5-S1 spondylolisthesis 2. Left L5-S1 foraminal stenosis 3. Left L5-S1-S1 radiculopathy Patient is doing well post-operatively, pain controlled w/oral medication, neurologically intact to BLE. Reviewed labs & imaging, UA & CXR unremarkable. MRI lumbar spine demonstrates post-operative changes secondary to the L5-S1 fusion. There is epidural soft tissue prominence posteriorly at the L3-4 level which is suspected to be an epidural lipoma. Also noted is chronic degenerative disease at the L2-3 level with abutment of an annular bulge to the right L2 nerve root. RENAN drain w/15 mL out the past 24 hrs this morning. POD #2 () s/p: 1. Left L5-S1 decompressive semi-laminectomy, facetectomy, foraminotomy- microtechnique 2. Left L5-S1 discectomy, interbody fusion,PEEK cage, local autograft bone, allograft bone-microtechnique 3. Bilateral L5-S1 posterior pedicle screw fixation 4. Intraoperative reduction grade 1 L5-S1 spondylolisthesis Plan: Discussed plan of care and discharge instructions w/patient who verbalised her understanding, questions answered. Neuro checks q4h. Mobilise patient w/assistance as needed. LSO on when OOB. PT eval & tx. Will d/c RENAN drain. Will discharge patient home this afternoon. Valentin Ng May 18, 2017 11:06
[2017-05-18] MEDS ORDERED: CYCL10TA PO (11:10)
[2017-05-18 11:52] VITALS: BP 142/80; PULSE 89; RESP 17; TEMP 98.9; O2SAT 98
[2017-05-18 12:00] VITALS: O2SAT 98
--- NOTE | 2017-05-18 13:19 | HHI.DCPOC ---
Discharge Care Plan Diagnosis: (1) Low back pain (2) Degenerative disc disease, lumbar (3) Lumbar radiculopathy (4) Spondylolisthesis of lumbar region Your Health Problems Are: Incision/Drains Goals to Promote Your Health * To prevent worsening of your condition and complications * To maintain your health at the optimal level Wear the LSO brace when out of bed. No lifting, bending, pushing, pulling or other strenuous activity. Leave the dressing on over the surgical incisions for 1 week. After that you may take the outer dressing off but leave the steri-strips on and let them fall off on their own. No showering until the surgical incision is totally healed. Take the pain medication as prescribed. Avoid taking any medication that contains aspirin or NSAIDs (ibuprofen, naproxen , Motrin, Advil, Naprosyn). Follow up in the office as scheduled. Directions to Meet Your Goals Take your medications as prescribed Follow your dietary instruction Follow activity as directed Wear the LSO brace when out of bed. No lifting, bending, pushing, pulling or other strenuous activity. Leave the dressing on over the surgical incisions for 1 week. After that you may take the outer dressing off but leave the steri-strips on and let them fall off on their own. No showering until the surgical incision is totally healed. Take the pain medication as prescribed. Avoid taking any medication that contains aspirin or NSAIDs (ibuprofen, naproxen , Motrin, Advil, Naprosyn). Follow up in the office as scheduled. Keep your appointments as scheduled Take your immunizations and boosters as scheduled If your symptoms worsen call your PCP, if no PCP go to Urgent Care Center or Emergency Room Smoking is Dangerous to Your Health. Avoid second hand smoke Call the 24-hour hour crisis hotline for domestic abuse at Valentin Ng May 18, 2017 13:19
--- NOTE | 2017-05-18 13:23 | HHI.DS ---
Discharge Summary Admission Date May 16, 2017 at 08:30 Discharge Date: May 18, 2017 Admitting Diagnosis (1) Low back pain Diagnosis: Principal ICD Code: M54.5 - Low back pain Status: Chronic (2) Lumbar radiculopathy Diagnosis: Secondary ICD Code: M54.16 - Lumbar radiculopathy Status: Chronic (3) Spondylolisthesis of lumbar region Diagnosis: Secondary ICD Code: M43.16 - Spondylolisthesis, lumbar region (4) Degenerative disc disease, lumbar Diagnosis: Secondary ICD Code: M51.36 - Degenerative disc disease, lumbar Status: Acute CBC/BMP: 05/17/17 0529 05/17/17 0529 Significant Findings Laboratory Tests Test 05/16/17 16:30 05/17/17 05:29 05/17/17 12:30 Arterial Blood pH 7.44 (7.380-7.420) Arterial Blood Partial Pressure CO2 36 mmHg (38-42) Arterial Blood Partial Pressure O2 273 mmHg (61-120) White Blood Count 19.9 TH/MM3 (4.0-11.0) Monocytes (%) (Auto) 10.1 % (0.0-8.0) Neutrophils # (Auto) 13.2 TH/MM3 (1.8-7.7) Monocytes # (Auto) 2.0 TH/MM3 (0-0.9) Random Glucose 110 MG/DL (74-106) Urine RBC 4 /hpf (0-3) Urine Mucus FEW /lpf (OCC) Hospital Course 05/16: The patient presented to [facility] to have a left decompressive laminectomy and discetomy with PEEK cage placement and bilateral posterior screw fixation. Post-operatively she was admitted to a regular med/surg floor for further care and monitoring due to agitation. 05/17: This morning the patient is doing well.She states that the pain she had during the night is much better and basically resolved. She is using a LEATHER FLESHER pump for pain control. Prior to being evaluated the patient was seen up and ambulating the hallway with standby assist from Physical Therapy. She did go to have an MRI lumbar spine this morning due to the pain during the night. 05/18: When seen this morning the patient is awake and alert. She is laying in bed dressed with her LSO brace in place. She says the pain to her back continues to improve and is controlled with oral medication. She has been off IV pain medication since yesterday evening. Pt Condition on Discharge: Good Discharge Disposition: Discharge Home Discharge Instructions DIET: Follow Instructions for: As Tolerated, No Restrictions ACTIVITIES You can perform: Full Weight Bearing Activities to Avoid: Contact Sports, Lifting/Bending, Strenuous Activity, Bathing, Shower ADDITIONAL Activity Instructio: Wear the LSO brace when out of bed. No lifting, bending, pushing, pulling or other strenuous activity. Additional Information Leave the dressing on over the surgical incisions for 1 week. After that you may take the outer dressing off but leave the steri-strips on and let them fall off on their own. No showering until the surgical incision is totally healed. Take the pain medication as prescribed. Avoid taking any medication that contains aspirin or NSAIDs (ibuprofen, naproxen , Motrin, Advil, Naprosyn). Follow up in the office as scheduled. Valentin Ng May 18, 2017 13:23
== END 2017-05-18 15:41 | disposition home or self-care (01) | DRG 460 ==
LOC: HSDI 08:30 → N06A 19:42
PROVIDERS: ADMIT Neurological Surgery; ATTEND Neurological Surgery
PROC: 0SB40ZZ Excision of Lumbosacral Disc, Open Approach (ICD-10-PCS; 2017-05-16)
PROC: 0SG30AJ Fusion of Lumbosacral Joint with Interbody Fusion Device, Posterior Approach, Anterior Column, Open Approach (ICD-10-PCS; principal; 2017-05-16 12:33)
DX: M43.17 Spondylolisthesis, lumbosacral region (principal); D72.829 Elevated white blood cell count, unspecified; F17.210 Nicotine dependence, cigarettes, uncomplicated; M51.17 Intervertebral disc disorders with radiculopathy, lumbosacral region; M48.07 Spinal stenosis, lumbosacral region; R45.1 Restlessness and agitation
CPT/HCPCS: 71020; 72100; 72148; 76000; 80048; 81001; 82805; 85025; 86850; 86900; 86901; 94150; J1170; C1713; C9290; J0690; J1100; J1580; J1885; J2250; J2270; J2370; J2405; J2710; J3010; J3480; J7120; L0484